=== PATIENT | female | born 1975 | race Caucasian/White ===

== ENCOUNTER 2020-08-09 15:35 | Inpatient (IN) | payer OTHER ==
[~2020-08-09] VITALS: Ht 180.3 cm; Wt 95.7 kg
[~2020-08-09 15:35] MED LIST: ECOTRIN81 MG PO; FORTAMET1000 MG PO; HUMALOG; LANTUS; SYNTHROID150 MCG PO; ZESTRIL2.5 MG PO
[2020-08-16] MEDS ORDERED: LANTUS SOL100 UNIT/1 (11:15)
[2020-08-16] MEDS ORDERED: HUMALOG100 UNIT/2 SQ (11:15)
== END 2020-08-17 11:14 | disposition home or self-care (01) | DRG 741 ==
LOC: O/R 08-16 06:08 → OB/GYN 08-16 10:15 → SURG 08-16 20:23
PROVIDERS: ADMIT Obstetrics & Gynecology Gynecologic Oncology; ATTEND Obstetrics & Gynecology Gynecologic Oncology
PROC: 0UT24ZZ Resection of Bilateral Ovaries, Percutaneous Endoscopic Approach (ICD-10-PCS; 2020-08-16)
PROC: 0UT74ZZ Resection of Bilateral Fallopian Tubes, Percutaneous Endoscopic Approach (ICD-10-PCS; 2020-08-16)
PROC: 07BC4ZZ Excision of Pelvis Lymphatic, Percutaneous Endoscopic Approach (ICD-10-PCS; 2020-08-16)
PROC: 0UT94ZZ Resection of Uterus, Percutaneous Endoscopic Approach (ICD-10-PCS; principal; 2020-08-16 10:15)
DX: C54.1 Malignant neoplasm of endometrium (principal); D36.0 Benign neoplasm of lymph nodes; N84.0 Polyp of corpus uteri; N80.0 Endometriosis of uterus